=== PATIENT | female | born 1980 | race Caucasian/White ===

== ENCOUNTER 2024-12-06 08:33 | Inpatient (IN) | payer BC ==
[2024-12-06] MEDS ORDERED: Nalbuphine 10 MG/1 ML Vial IVPUSH PRN (08:52)
[2024-12-06] MEDS ORDERED: Sodium Chloride 0.9% 10 ML Syringe FLUSH PRN (08:52)
[2024-12-06] MEDS ORDERED: Ondansetron 4 MG/2 ML SDV IVPUSH PRN (08:52)
[2024-12-06] MEDS: Lactated Ringers 1,000 ML IV SCH (09:30)
[2024-12-06] MEDS: Penicillin G Potassium 5 MILLUNITS in Sodium Chloride 0.9% 100 ML IV SCH (09:30)
[2024-12-06 09:50] LABS: BASOPHILS ABSOLUTE AUTO 0.0 K/mm3 (0.0-0.2); BASOPHILS PERCENT AUTO 0.4 % (0.0-1.0); EOSINOPHILS ABSOLUTE AUTO 0.1 K/mm3 (0.0-0.4); EOSINOPHILS PERCENT AUTO 0.8 % (0.0-6.0); IMMATURE GRAN ABSOLUTE AUTO 0.07 K/mm3 (0.00-0.05); IMMATURE GRAN PERCENT AUTO 1.0 % (0.0-0.4); LYMPHOCYTES ABSOLUTE AUTO 1.6 K/mm3 (1.0-4.8); LYMPHOCYTES PERCENT AUTO 22.6 % (24.0-44.0); MEAN PLATELET VOLUME 9.8 fl (9.4-12.3); MONOCYTES ABSOLUTE AUTO 0.6 K/mm3 (0.0-0.8); MONOCYTES PERCENT AUTO 8.2 % (0.0-8.0); NEUTROPHILS ABSOLUTE AUTO 4.8 K/mm3 (1.8-7.7); NEUTROPHILS PERCENT AUTO 67.0 % (41.0-71.0); NRBC ABSOLUTE 0.00 (0.00-0.02); NRBC PERCENT 0.0 % (0.0-0.2); PLATELET COUNT,PLT 283 K/mm3 (150-400); RED BLOOD CELL COUNT 3.36 M/mm3 (4.10-5.30); WHITE BLOOD CELL COUNT,WBC 7.16 K/mm3 (3.9-11.3)
[2024-12-06 10:19] LABS: ALANINE AMINOTRANSFERASE,ALT 16.0 U/L (14-59); ASPARTATE AMNIOTRANSFERASE,AST 16.0 U/L (15-37); BLOOD UREA NITROGEN,BUN 13.0 mg/dL (7-18); CREATININE 0.7 mg/dL (0.55-1.02); EST CRCL DRUG DOSING (CG) 115.82 mL/min; ESTIMATED GFR 110.0 mL/min (>60); LACTATE DEHYDROGENASE,LDH 151.0 U/L (81-234)
[2024-12-06 10:26] LABS: CREATININE,URINE RAND 274.0 mg/dL (30.0-125.0); PROTEIN CREATININE RATIO,URINE 408.8 mg/g (0-149); PROTEIN,URINE RANDOM 112.0 mg/dL (0.0-11.8)
[2024-12-06] MEDS ORDERED: diphenhydrAMINE 50 MG/ML SDV IVPUSH PRN (11:05)
[2024-12-06] MEDS ORDERED: ePHEDrine 50 MG/ML SDV IVPUSH PRN (11:05)
[2024-12-06] MEDS: Penicillin G Potassium 2.5 MILLUNITS in Sodium Chloride 0.9% 100 ML IV SCH (13:28)
[2024-12-06] MEDS: Oxytocin/0.9 % Sodium Chloride 30 UNIT/500 ML BAG IV SCH ×2 (13:44→21:19)
[2024-12-06] MEDS: Bupivacaine/fentaNYL/NS 100 ML Bag EPIDUR PRN (13:55)
[2024-12-06] MEDS: Labetalol 100 MG/20 ML MDV IVPUSH ONE ×2 (20:06→21:34)
[2024-12-06] MEDS: Labetalol 100 MG/20 ML MDV ONE (20:12)
[2024-12-06] MEDS ORDERED: Calcium Gluconate 10% 1 GM/10 ML SDV IV PRN (21:19)
[2024-12-06] MEDS: Ketorolac 30 MG/ML SDV IVPUSH ONE (21:24)
[2024-12-06] MEDS ORDERED: Lactated Ringers 1,000 ML IV SCH (21:30)
[2024-12-06] MEDS: Magnesium Sulf/Wat 4 GM/50 mL 4 GM in Premix Bag 1 BAG IV ONE (21:52)
[2024-12-07] MEDS: Lactated Ringers 1,000 ML IV SCH (01:43)
[2024-12-07] MEDS: Witch Hazel Medicated Pads 40/Jar TOP PRN (05:34)
[2024-12-07] MEDS: Benzocaine/Menthol 20%-0.5% Spray 78 GM Cannister TOP PRN (05:34)
[2024-12-07 06:07] LABS: MEAN PLATELET VOLUME 9.9 fl (9.4-12.3); NRBC ABSOLUTE 0.00 (0.00-0.02); NRBC PERCENT 0.0 % (0.0-0.2); PLATELET COUNT,PLT 264 K/mm3 (150-400); RED BLOOD CELL COUNT 3.15 M/mm3 (4.10-5.30); WHITE BLOOD CELL COUNT,WBC 9.25 K/mm3 (3.9-11.3)
[2024-12-07 06:31] LABS: A/G RATIO 0.5 (1-2); ALANINE AMINOTRANSFERASE,ALT 18.0 U/L (14-59); ASPARTATE AMNIOTRANSFERASE,AST 15.0 U/L (15-37); BILIRUBIN TOTAL 0.2 mg/dL (0.2-1.0); BLOOD UREA NITROGEN,BUN 11.0 mg/dL (7-18); CARBON DIOXIDE,CO2 23.0 mEq/L (21-32); CHLORIDE,CL 105.0 mEq/L (98-107); CREATININE 0.9 mg/dL (0.55-1.02); EST CRCL DRUG DOSING (CG) 90.08 mL/min; ESTIMATED GFR 81.0 mL/min (>60); GLUCOSE RANDOM 122.0 mg/dL (70-99); POTASSIUM,K 3.8 mEq/L (3.5-5.1); PROTEIN TOTAL,TP 5.4 g/dl (6.4-8.2); SODIUM,NA 136.0 mEq/L (136-145)
[2024-12-08] MEDS: Measles, Mumps & Rubella Vaccine 0.5 ML SDV SUBCUT ONE (16:40)
== END 2024-12-08 17:20 | disposition home or self-care (01) | DRG 560 ==
LOC: JD.OBCHECK 08:33 → JD.OB 08:33 → JD.OBCHECK 08:51 → JD.OB 08:52 → OBSVTOIN 20:50 → JD.OB 20:51
PROVIDERS: ADMIT Obstetrics & Gynecology; ATTEND Obstetrics & Gynecology
PROC: 3E0DXGC Introduction of Other Therapeutic Substance into Mouth and Pharynx, External Approach (ICD-10-PCS; principal; 2024-12-06)
PROC: 10907ZC Drainage of Amniotic Fluid, Therapeutic from Products of Conception, Via Natural or Artificial Opening (ICD-10-PCS; principal; 2024-12-06)
PROC: 3E033VJ Introduction of Other Hormone into Peripheral Vein, Percutaneous Approach (ICD-10-PCS; principal; 2024-12-06)
PROC: 3E0234Z Introduction of Serum, Toxoid and Vaccine into Muscle, Percutaneous Approach (ICD-10-PCS; principal; 2024-12-06)
PROC: 10E0XZZ Delivery of Products of Conception, External Approach (ICD-10-PCS; principal; 2024-12-06)
PROC: 0HQ9XZZ Repair Perineum Skin, External Approach (ICD-10-PCS; principal; 2024-12-06)
PROC: 3E0R3BZ Introduction of Anesthetic Agent into Spinal Canal, Percutaneous Approach (ICD-10-PCS; principal; 2024-12-06)
DX: O99.824 Streptococcus B carrier state complicating childbirth (principal); O14.14 Severe pre-eclampsia complicating childbirth; O99.214 Obesity complicating childbirth; Z3A.38 38 weeks gestation of pregnancy; Z37.0 Single live birth; Z23 Encounter for immunization; Z86.16 Personal history of COVID-19; Z98.890 Other specified postprocedural states; Z79.82 Long term (current) use of aspirin; Z79.899 Other long term (current) drug therapy; O70.0 First degree perineal laceration during delivery
CPT/HCPCS: 36415; 51701; 51702; 59025; 59409; 80053; 82565; 82570; 83615; 84156; 84450; 84460; 84520; 84550; 85025; 85027; 86592; 86850; 86900; 86901; 90471; 90707; A9270-GY; J1885; J1920; J2540; J3475; J3490; J7120; J7999